=== PATIENT | female | born 1960 | race Native Hawaiian/Other Pacific Islander ===

== ENCOUNTER 2018-01-25 23:31 | Emergency (ER) | payer OTHER ==
[2018-01-26 00:27] LABS: URINE BILIRUBIN NEGATIVE (NEGATIVE); URINE BLOOD 3+ (NEGATIVE); URINE CLARITY Clear (Clear); URINE COLOR Colorless (YELLOW); URINE GLUCOSE (UA) NORMAL (Normal); URINE LEUKOCYTE ESTERASE 1+ Leu/uL (Negative); URINE PROTEIN NEGATIVE (NEGATIVE); URINE UROBILINOGEN NORMAL mg/dL (0.2-1.0)
--- NOTE | 2018-01-26 00:34 | C.PDOC ---
History Of Present Illness 57 year old female presents to the ED for evaluation of burning sensation upon urination which began this morning. Patient denies fever, chills, abdominal pain, back pain, nausea, vomiting. Time Seen by Provider: 01/25/18 23:56 Chief Complaint (Nursing): Female Genitourinary History Per: Patient History/Exam Limitations: no limitations Onset/Duration Of Symptoms: Hrs Current Symptoms Are (Timing): Still Present Quality Of Discomfort: Burning Associated Symptoms: Urinary Symptoms. denies: Fever, Chills, Nausea, Vomiting Additional History Per: Patient Abnormal Vaginal Bleeding: No Past Medical History Reviewed: Historical Data, Nursing Documentation, Vital Signs Vital Signs: Last Vital Signs Temp 98 F 01/25/18 23:40 Pulse 92 H 01/25/18 23:40 Resp 20 01/25/18 23:40 BP 142/86 01/25/18 23:40 Pulse Ox 99 01/25/18 23:40 - Medical History PMH: No Chronic Diseases Surgical History: No Surg Hx - [facility] Procedures TETANUS TOXOID ADMINIST (09/26/13) Family History: States: Unknown Family Hx - Social History Hx Tobacco Use: No Hx Alcohol Use: No Hx Substance Use: No - Immunization History Hx Tetanus Toxoid Vaccination: No Hx Influenza Vaccination: Yes Hx Pneumococcal Vaccination: No Review Of Systems Constitutional: Negative for: Fever, Chills Gastrointestinal: Negative for: Nausea, Vomiting, Abdominal Pain Genitourinary: Positive for: Other (burning upon urination ) Musculoskeletal: Negative for: Back Pain Physical Exam - Physical Exam Appears: Non-toxic, No Acute Distress Skin: Normal Color, Warm, Dry Head: Atraumatic, Normacephalic Eye(s): bilateral: Normal Inspection Oral Mucosa: Moist Neck: Supple Chest: No Deformity Gastrointestinal/Abdominal: Soft, No Tenderness, No Guarding, No Rebound Back: No CVA Tenderness Extremity: Normal ROM Neurological/Psych: Oriented x3, Normal Speech, Normal Cognition ED Course And Treatment O2 Sat by Pulse Oximetry: 99 (on RA) Pulse Ox Interpretation: Normal Progress Note: Urine culture and urinalysis ordered and reviewed. Urinalysis results are indicative of a urinary tract infection. Macrobid PO given. On reassessment, patient is resting comfortably, showing no signs of distress and is stable for discharge. Patient is advised to f/u with her PMD within 1-2 days for further evaluation. Advised to return to the ED if symptoms persist or worsen. Disposition - Disposition Referrals: Carolyne Marsh MD [Staff Provider] - Disposition: HOME/ ROUTINE Disposition Time: 00:32 Condition: STABLE Additional Instructions: Follow up with your PMD within 1-2 days. Return to ED if feel worse. Prescriptions: Nitrofurantoin Macrocrystals [Macrobid] 1 cap PO BID #10 cap Phenazopyridine [Pyridium] 200 mg PO TID #15 tab Instructions: Urinary Tract Infections in Adults Forms: [employer] (Greenlandic) - Clinical Impression Clinical Impression: UTI (urinary tract infection) - PA / EXHIBITION SPECIALIST / Resident Statement MD/DO has reviewed & agrees with the documentation as recorded. - Scribe Statement The provider has reviewed the documentation as recorded by the Scribe (Rylie Baig) All medical record entries made by the Scribe were at my direction and personally dictated by me. I have reviewed the chart and agree that the record accurately reflects my personal performance of the history, physical exam, medical decision making, and the department course for this patient. I have also personally directed, reviewed, and agree with the discharge instructions and disposition.
[2018-01-26 01:07] VITALS: BP 147/79; PULSE 73; RESP 18; TEMP 98.3
[2018-01-26 01:08] VITALS: O2SAT 99
== END 2018-01-26 01:06 | disposition home or self-care (01) ==
LOC: C.ER 23:31
DX: N39.0 Urinary tract infection, site not specified (principal)